=== PATIENT | female | born 1990 | race African-American/Black ===

== ENCOUNTER 2016-05-04 22:03 | Emergency (ER) | payer OTHER ==
[~2016-05-04] VITALS: Ht 160 cm; Wt 54.4 kg
[2016-05-04] MEDS ORDERED: ALBUTEROL2.5 MG/3 M INH (22:22)
[2016-05-04 22:44] VITALS: BP 111/75
[2016-05-04 23:04] VITALS: BP 111/75
--- NOTE | 2016-05-05 00:19 | Emergency Room Report ---
History of Present Illness General Chief Complaint: Pain Source: Patient Present Illness HPI 26 YO F here because "I need time off from work. My coworker told me to go to the ER to get a doctor's note." Patient endorses working 6 days per week, very stressed because of family living situation. She states "I feel like my menstrual cycle is starting" but denies pelvic pain, abd pain, vaginal bleeding. She denies any PMHx. Denies smoking, ETOH abuse, drug use. Denies any pain at all right now. Denies dysuria as well. Allergies: Coded Allergies: No Known Allergies (Unverified , 05/04/16) Patient History Past Medical History: none Past Surgical History: none Pertinent Family History: none Social History: Denies: alcohol use, drug use, smoking Last Menstrual Period: 2 WEEKS AGO Now: No Immunizations: UTD Reviewed Nursing Documentation: PMH: Agreed, PSxH: Agreed Nursing Documentation-PMH Hx Asthma: Yes Review of Systems All Other Systems: negative except mentioned in HPI Physical Exam Vital Signs Date Time Temp Pulse Resp B/P Pulse Ox O2 Delivery O2 Flow Rate FiO2 05/04/16 22:16 98.6 72 16 111/75 99 Room Air Sp02 EP Interpretation: reviewed, normal General Appearance: normal inspection, well appearing, no apparent distress, alert, GCS 15, non-toxic Head: normocephalic, atraumatic Eyes: bilateral eye EOMI, bilateral eye PERRL ENT: normal ENT inspection, hearing grossly normal, normal voice Neck: normal inspection, full range of motion, supple, no bony tend Respiratory: normal inspection, lungs clear, normal breath sounds, no respiratory distress, no retraction, no wheezing Cardiovascular #1: regular rate, rhythm, no edema Gastrointestinal: normal inspection, normal bowel sounds, non tender, soft, no guarding, no hernia Genitourinary: no CVA tenderness Musculoskeletal: normal inspection, back normal, normal range of motion, Bear' s Sign negative Neurologic: normal inspection, alert, oriented x3, responsive, certified endoscopy technician III-XII nml as tested, motor strength/tone normal, speech normal Psychiatric: normal inspection, judgement/insight normal, mood/affect normal Skin: normal inspection, normal color, no rash Lymphatic: normal inspection Medical Decision Making Diagnostic Impression: Primary Impression: Work-related stress ER Course 26 YOF here with request for work note because of stress from work/home. VSS. Afebrile. Asymptomatic. Patient does not want any laboratory/imaging workup at this time I agree Patient does not have PMD. Advised non pharmacologic methods for reducing stress Provided work note DC home Last Vital Signs Date Time Temp Pulse Resp B/P Pulse Ox O2 Delivery O2 Flow Rate FiO2 05/04/16 23:04 98.6 73 16 111/75 99 Room Air Status: improved Disposition: HOME, SELF-CARE Condition: Improved Patient Instructions: Stress and Stress Management JAYY MCCLELLAND M.D. May 05, 2016 00:19
== END 2016-05-04 23:05 | disposition home or self-care (01) ==
LOC: EMR 22:35
DX: F43.9 Reaction to severe stress, unspecified (principal); J45.909 Unspecified asthma, uncomplicated
CPT/HCPCS: 99281